=== PATIENT | female | born 1970 | race Hispanic/Latino ===

== ENCOUNTER → 2020-08-06 | Outpatient (CLI) | payer BC ==
[~2020-08-06] MED LIST: CIPRO500 MG PO; GLYBURIDE5 MG PO; KLOR-CON M2020 MEQ PO; LEVAQUIN500 MG PO; METFORMIN HCL850 MG PO; ZOFRAN ODT4 MG PO
== END ==
LOC: CARD 09:49
PROVIDERS: ATTEND Internal Medicine
DX: E11.65 Type 2 diabetes mellitus with hyperglycemia (principal); M79.605 Pain in left leg; M79.604 Pain in right leg; I73.9 Peripheral vascular disease, unspecified; K55.1 Chronic vascular disorders of intestine
CPT/HCPCS: 93925

== ENCOUNTER → 2020-08-26 | Outpatient (CLI) | payer BC | LOC: MAMMO 12:48 | PROVIDERS: ATTEND Internal Medicine | DX: R92.8 Other abnormal and inconclusive findings on diagnostic imaging of breast (principal) ==